=== PATIENT | male | born 1950 | race Caucasian/White ===

== ENCOUNTER → 2018-03-04 12:38 | Outpatient (BNVA) | payer MEDICARE, BC, SELFPAY | PROVIDERS: Visit Provider Orthopaedic Surgery | DX: M17.11 Unilateral primary osteoarthritis, right knee (principal); M17.12 Unilateral primary osteoarthritis, left knee | CPT/HCPCS: 20610; 99212; J1040 ==

== ENCOUNTER → 2018-03-16 10:42 | Outpatient (BNVA) | payer MEDICARE, BC, SELFPAY | PROVIDERS: PCP Family Medicine; Referring Provider Family Medicine; Visit Provider Orthopaedic Surgery | DX: R69 Illness, unspecified (principal) ==

== ENCOUNTER 2018-03-16 11:45 | Day surgery (SDC) | payer MEDICARE, BC, SELFPAY ==
[2018-03-16 12:23] VITALS: BP 171/81; PULSE 82; RESP 16; TEMP 37.2; O2SAT 96
[2018-03-16] MEDS: Lidocaine 2% Pres-Free 5 ML VIAL 10 ML (13:04)
--- NOTE | 2018-03-16 13:31 | PDOC.DSDIS_ITS ---
Discharge Plan Discharge Details Attending Provider: Kyle Chau Primary Care Provider: Car Easton Home Meds and New Rx's Prescriptions: No Action meclizine [Antivert] 12.5 MG tablet 1 tab PO Q6H PRN RF: 0 amoxicillin-pot clavulanate [Augmentin] 1 EACH tablet PO PRN CELLULITIS RF: 0 mometasone [Nasonex] 17 GM spray,non-aerosol 2 spry NS DAILY Qty: 3 RF: 4 urine strainer Qty: 1 RF: 0 potassium chloride 10 MEQ tablet extended release 1 tab PO DAILY Qty: 90 RF: 4 fexofenadine 180 MG tablet 180 mg PO DAILY Qty: 90 RF: 4 simvastatin [Zocor] 40 MG tablet 1 tab PO DAILY Qty: 90 RF: 4 furosemide [Lasix] 80 MG tablet 1 tab PO DAILY Qty: 90 RF: 4 ammonium lactate 140 GM cream 140 gm Topical DAILY Qty: 140 RF: 5 metronidazole [Metrogel] 60 GM gel Topical DAILY Qty: 60 RF: 5 sildenafil [Viagra] 100 MG tablet 100 mg PO As Directed Qty: 6 RF: 4 metformin 1,000 MG tablet 1,000 mg PO BID Qty: 180 RF: 4 losartan-hydrochlorothiazide [Hyzaar] 1 EACH tablet 1 tab PO QAM RF: 0 triamcinolone acetonide 15 GM cream 1 applic Topical TID RF: 0 clobetasol-emollient 15 GM cream 1 uyen Topical TID RF: 0 ibuprofen 800 MG tablet 800 mg PO TID Qty: 90 RF: 3 lancets [OneTouch Delica Lancets] 1 EACH misc 1 ea Miscellaneous DAILY Qty: 100 RF: 5 clotrimazole 45 GM cream Topical BID Qty: 45 RF: 3 blood-glucose meter [OneTouch Ultra2] 1 EACH kit 1 ea Miscellaneous DAILY Qty: 1 RF: 0 ONETOUCH ULTRA TEST STRIPS 1 EACH strip 1 ea Miscellaneous DAILY Qty: 100 RF: 4 empagliflozin [Jardiance] 10 MG tablet 10 mg PO DAILY Qty: 30 RF: 4 aspirin [Aspir-81] 81 MG tablet,delayed release (DR/EC) 81 mg PO DAILY RF: 0 fish oil-dha-epa 1 EACH capsule 2 cap PO DAILY RF: 0 acetaminophen [Tylenol Extra Strength] 500 MG tablet 2 tab PO PRN PRNRF: 0 vit [id number] [Bioflex] 1 EACH tablet 2 tab PO DAILY RF: 0 methotrexate sodium 2.5 mg Tablet 2.5 mg PO ONCE RF: 0 diclofenac sodium 75 mg Tablet,Delayed Release (Dr/Ec) 75 mg PO BID RF: 0
--- NOTE | 2018-03-16 13:33 | W.PM.DSUDISC ---
Discharge Plan Disposition Patient Disposition: HOME Condition: Improving Discharge Details Attending Provider: Kyle Chau Primary Care Provider: Car Easton Home Meds and New Rx's Prescriptions: No Action meclizine [Antivert] 12.5 MG tablet 1 tab PO Q6H PRN RF: 0 amoxicillin-pot clavulanate [Augmentin] 1 EACH tablet PO PRN CELLULITIS RF: 0 mometasone [Nasonex] 17 GM spray,non-aerosol 2 spry NS DAILY Qty: 3 RF: 4 urine strainer Qty: 1 RF: 0 potassium chloride 10 MEQ tablet extended release 1 tab PO DAILY Qty: 90 RF: 4 fexofenadine 180 MG tablet 180 mg PO DAILY Qty: 90 RF: 4 simvastatin [Zocor] 40 MG tablet 1 tab PO DAILY Qty: 90 RF: 4 furosemide [Lasix] 80 MG tablet 1 tab PO DAILY Qty: 90 RF: 4 ammonium lactate 140 GM cream 140 gm Topical DAILY Qty: 140 RF: 5 metronidazole [Metrogel] 60 GM gel Topical DAILY Qty: 60 RF: 5 sildenafil [Viagra] 100 MG tablet 100 mg PO As Directed Qty: 6 RF: 4 metformin 1,000 MG tablet 1,000 mg PO BID Qty: 180 RF: 4 losartan-hydrochlorothiazide [Hyzaar] 1 EACH tablet 1 tab PO QAM RF: 0 triamcinolone acetonide 15 GM cream 1 applic Topical TID RF: 0 clobetasol-emollient 15 GM cream 1 uyen Topical TID RF: 0 ibuprofen 800 MG tablet 800 mg PO TID Qty: 90 RF: 3 lancets [OneTouch Delica Lancets] 1 EACH misc 1 ea Miscellaneous DAILY Qty: 100 RF: 5 clotrimazole 45 GM cream Topical BID Qty: 45 RF: 3 blood-glucose meter [XVionicsTouch Ultra2] 1 EACH kit 1 ea Miscellaneous DAILY Qty: 1 RF: 0 ONETOUCH ULTRA TEST STRIPS 1 EACH strip 1 ea Miscellaneous DAILY Qty: 100 RF: 4 empagliflozin [Jardiance] 10 MG tablet 10 mg PO DAILY Qty: 30 RF: 4 aspirin [Aspir-81] 81 MG tablet,delayed release (DR/EC) 81 mg PO DAILY RF: 0 fish oil-dha-epa 1 EACH capsule 2 cap PO DAILY RF: 0 acetaminophen [Tylenol Extra Strength] 500 MG tablet 2 tab PO PRN PRNRF: 0 vit [id number] [Bioflex] 1 EACH tablet 2 tab PO DAILY RF: 0 methotrexate sodium 2.5 mg Tablet 2.5 mg PO ONCE RF: 0 diclofenac sodium 75 mg Tablet,Delayed Release (Dr/Ec) 75 mg PO BID RF: 0 Discharge Instructions Additional Instructions: Keep your left hand elevated above heart level as much as possible to help control pain and swelling. Exercise your fingers as comfort allows. Expect some bloody drainage on the gauze bandage. For showering tomorrow, cover your bandage with a plastic bag and a rubber band about the wrist to keep it dry. On , 03/18/18, you may remove all of your bandages and get your stitch wet in the shower with soap and water. Gently pat the stitch dry and cover with a bandaid or gauze. Resume normal use as tolerated. Return in 1 week for stitch removal. Take tylenol for any discomfort. Activity:: Elevate Remove Dressings/Wound Care:: 48 hours Shower/Bathe:: 48 hours Diet:: Carb Counting Discharge Orders Discharge Orders: Discharge Order (Routine); Ordered 03/16/18 Ordered By: Kyle Chau
--- NOTE | 2018-03-16 16:11 | ROE_ITS ---
DATE OF PROCEDURE: March 16, 2018 PREOPERATIVE DIAGNOSIS: Trigger finger left middle finger. POSTOPERATIVE DIAGNOSIS: Same. PROCEDURE: Release of A1 bhargav left middle finger. SURGEON: Kyle Chau M.D. MANAGER ENGINE: Nurse ANESTHETIC: 2% Xylocaine plain. PREP: ChloraPrep INDICATIONS: This patient has had triggering of digits of his other hand in the past. She has devel oped severe triggering of the left middle finger. It interferes with his hobby of fishing. I recomm ended release of the A1 bhargav. The risks and benefits were discussed. He understood and wished to proceed. OPERATIVE PROCEDURE: I met the patient in the Day Surgery holding area and correctly marked his midd le finger. He was brought to the Operating Suite where ChloraPrep was used to create a sterile field . Sterile drapes were applied. Two percent lidocaine was then used to create an anesthetic wheal ov er the MCP joint of the middle finger. After ensuring adequate anesthesia, a transverse incision was made over the A1 bhargav. Ragnell retractors were inserted. The A1 tendon sheath and bhargav were id entified. They were incised with a 15 scalpel blade, with that being completed with Littler scissors . The patient was then asked to flex and extend his middle finger. He could do so in an unencumbere d fashion. The wound was irrigated with saline and closed with a single suture of #4-0 Ethilon in a horizontal mattress fashion. The wounds were dressed with Xeroform gauze, 4x4s, and a 2-inch conform ing gauze bandage. The patient was taken to the patient Recovery Room in satisfactory condition, sameera erating the procedure well.
== END 2018-03-16 13:55 | disposition home or self-care (01) ==
PROVIDERS: PCP Family Medicine; Visit Provider Orthopaedic Surgery
PROC: (CPT 26055; principal; 2018-03-16 13:00)
DX: M65.332 Trigger finger, left middle finger (principal)
CPT/HCPCS: 26055

== ENCOUNTER → 2018-03-23 09:16 | Outpatient (BNVA) | payer MEDICARE, BC, SELFPAY | PROVIDERS: PCP Family Medicine; Referring Provider Family Medicine; Visit Provider Orthopaedic Surgery | DX: Z47.89 Encounter for other orthopedic aftercare (principal); M65.332 Trigger finger, left middle finger ==

== ENCOUNTER → 2018-11-04 13:20 | Outpatient (BNVA) | payer MEDICARE, BC, SELFPAY | PROVIDERS: PCP Family Medicine; Referring Provider Family Medicine; Visit Provider Orthopaedic Surgery | DX: M17.11 Unilateral primary osteoarthritis, right knee (principal); M17.12 Unilateral primary osteoarthritis, left knee; M25.561 Pain in right knee; M25.562 Pain in left knee | CPT/HCPCS: 20610; 99211; 99212; J7325 ==